=== PATIENT | female | born 1940 | race American Indian/Alaskan Native ===

== ENCOUNTER 2016-10-19 00:15 | Emergency (ER) | payer SELFPAY ==
[2016-10-19 03:09] LABS: Eosinophils % (Auto) 0.3 % (0.0-4.3); Hematocrit 39.1 % (30.3-42.9); Hemoglobin 13.5 gm/dl (10.1-14.3); Mean Corpuscular HGB Conc 34 % (30-34); Mean Corpuscular Hemoglobin 28 pg (28-32); Mean Corpuscular Volume 82 fl (79-97); Platelet Count 295 K/mm3 (140-440); Red Blood Count 4.75 M/mm3 (3.65-5.03); Red Cell Distribution Width 14.5 % (13.2-15.2); White Blood Count 12.6 K/mm3 (4.5-11.0)
[2016-10-19 03:19] LABS: Alanine Aminotransferase 8 units/L (7-56); Albumin/Globulin Ratio 1.1 %; Alkaline Phosphatase 74 units/L (35-129); Anion Gap 20 mmol/L; BUN/Creatinine Ratio 36.66; Blood Urea Nitrogen 22 mg/dL (7-17); Calcium 9.6 mg/dL (8.4-10.2); Carbon Dioxide 25 mmol/L (22-30); Chloride 95.6 mmol/L (98-107); Glucose 125 mg/dL (65-100); Lipase 27 units/L (13-60); Potassium 4.1 mmol/L (3.6-5.0); Sodium 136 mmol/L (137-145); Total Protein 7.7 g/dL (6.3-8.2)
[2016-10-19 04:48] LABS: Bilirubin,Urine NEG (Negative); Blood,Urine NEG (Negative); Ketones,Urine TR mg/dL (Negative); Leukocyte Esterase,Urine TR (Negative); Mucus,Urine 2+ /HPF; Nitrite,Urine NEG (Negative); Urobilinogen,Urine < 2.0 mg/dL (<2.0)
[2016-10-19] MEDS ORDERED: NACL 0.9% 1000 ML 1,000 ML IV ONE (11:35)
[2016-10-19] MEDS ORDERED: LOPRESSOR PO ONE (11:35)
[2016-10-19] MEDS ORDERED: MORPHINE IV ONE (11:35)
[2016-10-19] MEDS ORDERED: ZOFRAN IV ONE (11:35)
[2016-10-19] MEDS ORDERED: PEPCID IV ONE (11:35)
[2016-10-19] MEDS ORDERED: NACL ONE (11:40)
--- NOTE | 2016-10-19 11:41 | Emergency Department Report ---
ED Abdominal Pain HPI - General Chief Complaint: Abdominal Pain Stated Complaint: STOMACH PAIN/POSS HIGH BP Time Seen by Provider: 10/19/16 11:25 Source: patient Mode of arrival: Ambulatory Limitations: No Limitations - History of Present Illness Initial Comments: 75-year-old female the past medical history of GERD, hypertension, elevated cholesterol , and previous hysterectomy presents to the hospital complaining of abdominal pain 2 days. Pain is in the mid and lower abdomen, crampy, intermittent. No aggravating or alleviating factors reported. Positive associated nausea and vomiting with 2 episodes prior to arrival. Patient denies melena, hematochezia, hematemesis, fever, diarrhea, or dysuria. Patient has been noncompliant with all her medications 1 week including her BP medication, H2 reina, beta reina, and cholesterol medication. Severity scale (0 -10): 10 - Related Data Previous Rx's Medication Instructions Recorded Last Taken Type Clonidine 0.1 mg PO DAILY #30 10/19/16 Unknown Rx Meloxicam 15 mg PO QDAY #30 tablet 10/19/16 Unknown Rx Metoprolol 50 mg PO DAILY #30 10/19/16 Unknown Rx NIFEdipine 60 mg PO DAILY #30 10/19/16 Unknown Rx Omeprazole Magnesium [PriLOSEC Otc] 40 mg PO QDAY #30 day 10/19/16 Unknown Rx Ondansetron [Zofran Odt] 4 mg PO Q8HR PRN #20 tab.rapdis 10/19/16 Unknown Rx Simvastatin 20 mg PO HS #30 10/19/16 Unknown Rx traMADol [Ultram 50 MG tab] 50 mg PO Q6HR PRN #30 tablet 10/19/16 Unknown Rx Allergies Allergy/AdvReac Type Severity Reaction Status Date / Time No Known Allergies Allergy Verified 02/01/16 12:22 ED Review of Systems ROS: Stated complaint: STOMACH PAIN/POSS HIGH BP Other details as noted in HPI Comment: All other systems reviewed and negative Other: Constitutional: No fevers chills or weight loss Eyes: No eye pain visual changes or discharge ENT: No ear pain or throat pain Neck: Denies pain Respiratory: Denies cough wheezing shortness of breath Cardiovascular: Denies chest pain, palpitations, syncope GI: As per HPI : Denies dysuria Musculoskeletal: Denies back pain Skin: Denies rash, lesions, erythema Neurologic: Denies headache, numbness, weakness Psychiatric: Denies suicidal ideation, hallucinations ED Past Medical Hx - Past Medical History Hx Hypertension: Yes Hx GERD: Yes Additional medical history: HIGH CHOLESTROL/ ACID REFLUX - Surgical History Past Surgical History?: Yes Additional Surgical History: Hysterectomy - Social History Smoking Status: Never Smoker Substance Use Type: None - Medications Home Medications: Home Medications Medication Instructions Recorded Confirmed Last Taken Type Clonidine 0.1 mg PO DAILY #30 10/19/16 Unknown Rx Meloxicam 15 mg PO QDAY #30 tablet 10/19/16 Unknown Rx Metoprolol 50 mg PO DAILY #30 10/19/16 Unknown Rx NIFEdipine 60 mg PO DAILY #30 10/19/16 Unknown Rx Omeprazole Magnesium [PriLOSEC Otc] 40 mg PO QDAY #30 day 10/19/16 Unknown Rx Ondansetron [Zofran Odt] 4 mg PO Q8HR PRN #20 tab.rapdis 10/19/16 Unknown Rx Simvastatin 20 mg PO HS #30 10/19/16 Unknown Rx traMADol [Ultram 50 MG tab] 50 mg PO Q6HR PRN #30 tablet 10/19/16 Unknown Rx ED Physical Exam - General Limitations: No Limitations - Other Other exam information: General: No limitations, patient is alert in no acute distress Head exam: Atraumatic, normocephalic Eyes exam: Normal appearance, not icteric sclera ENT: Moist mucous membrane, normal oropharynx Neck exam: Normal inspection, full range of motion Respiratory exam: Clear to auscultation bilateral, no wheezes, rales, crackles Cardiovascular: Tachycardic regular rhythm Abdomen: Soft, nondistended, mild epigastric and right upper quadrant tenderness , with normal bowel sounds, no rebound, or guarding or negative Mcbride sign Extremity: Full range of motion normal inspection no deformity Back: Normal Inspection, full range of motion, no tenderness Neurologic: Alert, oriented x3, cranial nerves intact, no motor or sensory deficit Psychiatric: normal affect, normal mood Skin: Warm, dry, intact ED Course Vital Signs 10/19/16 10/19/16 10/19/16 02:16 11:35 11:46 Temperature 98.8 F Pulse Rate 124 H 98 H Respiratory 16 21 Rate Blood Pressure 151/108 153/93 153/93 Blood Pressure 151/108 [Left] O2 Sat by Pulse 100 98 97 Oximetry 10/19/16 10/19/1617 12:21 12:39 12:46 Temperature Pulse Rate Respiratory 16 16 Rate Blood Pressure 153/93 115/62 Blood Pressure [Left] O2 Sat by Pulse 100 92 89 Oximetry 10/19/16 10/19/16 10/19/16 13:00 13:16 13:24 Temperature Pulse Rate Respiratory 17 15 17 Rate Blood Pressure 98/63 153/93 153/93 Blood Pressure [Left] O2 Sat by Pulse 96 96 96 Oximetry 10/19/16 10/19/16 10/19/16 13:26 13:28 13:30 Temperature Pulse Rate Respiratory 14 16 16 Rate Blood Pressure 153/93 153/93 153/93 Blood Pressure [Left] O2 Sat by Pulse 96 96 96 Oximetry 10/19/16 10/19/16 13:32 13:34 Temperature Pulse Rate 66 Respiratory 18 16 Rate Blood Pressure 153/93 113/68 Blood Pressure [Left] O2 Sat by Pulse 96 98 Oximetry - Reevaluation(s) Reevaluation #1: 10/19/16 11:40 IV Zofran, morphine, and Pepcid ordered. By mouth metoprolol and nifedipine also ordered Reevaluation #2: 10/19/16 13:40 Patient reports that it would ED treatment. Tolerating by mouth intake. proCardia not received. Vital signs improved after metoprolol alone - Consultations Consultation #1: 10/19/16 13:[address] Medrano superintendent institution GI physician. Patient be switched from H2 reina to PPI and outpatient follow-up for endoscopy and further treatment will be encouraged. ED Medical Decision Making - Lab Data Result diagrams: 10/19/16 02:45 10/19/16 02:45 Lab Results 10/19/16 10/19/16 10/19/16 Range/Units 02:45 02:45 04:23 WBC 12.6 H (4.5-11.0) K/mm3 RBC 4.75 (3.65-5.03) M/mm3 Hgb 13.5 (10.1-14.3) gm/dl Hct 39.1 (30.3-42.9) % MCV 82 (79-97) fl MCH 28 (28-32) pg MCHC 34 (30-34) % RDW 14.5 (13.2-15.2) % Plt Count 295 (140-440) K/mm3 Lymph % (Auto) 29.4 (13.4-35.0) % Caroline % (Auto) 7.0 (0.0-7.3) % Eos % (Auto) 0.3 (0.0-4.3) % Baso % (Auto) 1.0 (0.0-1.8) % Lymph # 3.7 (1.2-5.4) K/mm3 Caroline # 0.9 H (0.0-0.8) K/mm3 Eos # 0.0 (0.0-0.4) K/mm3 Baso # 0.1 (0.0-0.1) K/mm3 Seg Neutrophils % 62.3 (40.0-70.0) % Seg Neutrophils # 7.9 H (1.8-7.7) K/mm3 Sodium 136 L (137-145) mmol/L Potassium 4.1 (3.6-5.0) mmol/L Chloride 95.6 L (98-107) mmol/L Carbon Dioxide 25 (22-30) mmol/L Anion Gap 20 mmol/L BUN 22 H (7-17) mg/dL Creatinine 0.6 L (0.7-1.2) mg/dL Estimated GFR > 60 ml/min BUN/Creatinine Ratio 36.66 % Glucose 125 H (65-100) mg/dL Calcium 9.6 (8.4-10.2) mg/dL Total Bilirubin 0.50 (0.1-1.2) mg/dL AST 15 (5-40) units/L ALT 8 (7-56) units/L Alkaline Phosphatase 74 (35-129) units/L Total Protein 7.7 (6.3-8.2) g/dL Albumin 4.0 (3.9-5) g/dL Albumin/Globulin Ratio 1.1 % Lipase 27 (13-60) units/L Urine Color Yellow (Yellow) Urine Turbidity Slightly-cloudy (Clear) Urine pH 5.0 (5.0-7.0) Ur Specific [place] 1.028 (1.003-1.030) Urine Protein 30 mg/dl (Negative) mg/dL Urine Glucose (UA) Neg (Negative) mg/dL Urine Ketones Tr (Negative) mg/dL Urine Blood Neg (Negative) Urine Nitrite Neg (Negative) Urine Bilirubin Neg (Negative) Urine Urobilinogen < 2.0 (<2.0) mg/dL Ur Leukocyte Esterase Tr (Negative) Urine WBC (Auto) 2.0 (0.0-6.0) /HPF Urine RBC (Auto) 15.0 (0.0-6.0) /HPF U Epithel Cells (Auto) 9.0 (0-13.0) /HPF Urine Mucus 2+ /HPF - Radiology Data Radiology results: report reviewed (CT abdomen and pelvis IV contrast: Suspected peptic ulcer disease wall thickening of the antrum of the stomach and wanted him, right adrenal cyst, diverticulosis sigmoid colon) - Medical Decision Making Patient is better ED treatment. Will be discharged on PPI and refill in her meds. Outpatient follow-up with GI will be encouraged. Medication for be filled as per patient's current med list. It appears the patient takes most of these medications once a day even though the majority of her meds are twice a day medications. It does not appear that patient takes the XL version as per her medication list therefore the XL version will not be prescribed. - Differential Diagnosis GERD, gastritis, UTI, perforated viscus, dyspepsia, cholecystitis Critical Care Time: No Critical care attestation.: If time is entered above; I have spent that time in minutes in the direct care of this critically ill patient, excluding procedure time. ED Disposition Clinical Impression: PUD (peptic ulcer disease), Nausea and vomiting, Medication refill, HTN ( hypertension), Noncompliance with medication regimen Disposition: DISCHARGED TO HOME OR SELFCARE Is pt being admited?: No Does the pt Need Aspirin: No Condition: Stable Instructions: Peptic Ulcer (ED), Acute Nausea and Vomiting (ED), Hypertension ( ED) Additional Instructions: Take the medication as prescribed. Follow-up with the GI doctor provided and your primary care doctor. You may benefit from outpatient H. pylori testing and endoscopy. Return if symptoms worsen. Take the copy of your Cat scan Report to Your Physicians for Follow-Up. Prescriptions: Clonidine 0.1 mg PO DAILY #30 Meloxicam 15 mg PO QDAY #30 tablet Metoprolol 50 mg PO DAILY #30 NIFEdipine 60 mg PO DAILY #30 Omeprazole Magnesium [PriLOSEC Otc] 40 mg PO QDAY #30 day Ondansetron [Zofran Odt] 4 mg PO Q8HR PRN #20 tab.rapdis PRN Reason: Nausea And Vomiting Simvastatin 20 mg PO HS #30 traMADol [Ultram 50 MG tab] 50 mg PO Q6HR PRN #30 tablet PRN Reason: Pain Referrals: PRIMARY CARE, [Primary Care Provider] - 3-5 Days WOODROW MEDRANO MD [Staff Physician] - 3-5 Days (GI doctor ) Time of Disposition: 14:41
[2016-10-19] MEDS ORDERED: PROCARDIA XL PO ONE (12:00)
--- NOTE | 2016-10-19 12:32 | Cat Scan Report ---
CT scan of abdomen and pelvis with IV contrast: History: Upper abdominal pain nausea and vomiting. Findings: Normal lung bases. No pleural or pericardial effusion. Normal liver spleen pancreas and gallbladder. There is wall thickening noted of the stomach antrum and duodenum. Most pronounced at the antrum. No distinct mass. Right adrenal cyst measuring 1.9 cm in diameter. Normal kidneys and bladder. No free intraperitoneal fluid or air. No evidence of adenopathy. Normal aorta. Normal appendix. A few scattered diverticula sigmoid. No evidence of diverticulitis. No bowel distention. Impression: Findings suggestive of peptic ulcer disease. Right adrenal cyst. Diverticulosis sigmoid colon.
[2016-10-19] MEDS ORDERED: PROTONIX IV ONE (13:23)
[2016-10-19 13:43] VITALS: BP 113/68
== END 2016-10-19 14:55 | disposition home or self-care (01) ==
LOC: ED 00:15
DX: K27.9 Peptic ulcer, site unspecified, unspecified as acute or chronic, without hemorrhage or perforation (principal); I10 Essential (primary) hypertension; K21.9 Gastro-esophageal reflux disease without esophagitis; E78.00 Pure hypercholesterolemia, unspecified; Z90.710 Acquired absence of both cervix and uterus; Z91.14 Patient's other noncompliance with medication regimen
CPT/HCPCS: 36415; 74177; 80053; 81001; 83690; 85025; 93005; 93010; 96361; 96374; 96375; 99284; C9113; J2270; J2405; J7030; Q9967

== ENCOUNTER 2017-02-01 01:58 | Emergency (ER) | payer SELFPAY | END 2017-02-01 03:00 | disposition left against medical advice (07) | LOC: ED 01:58 | DX: R10.9 Unspecified abdominal pain (principal); Z53.21 Procedure and treatment not carried out due to patient leaving prior to being seen by health care provider ==

== ENCOUNTER 2018-06-01 11:09 | Emergency (ER) | payer MEDICARE, MEDICAID ==
[2018-06-01] MEDS ORDERED: ZOFRAN IV ONE (12:01)
[2018-06-01] MEDS ORDERED: NACL 0.9% 1000 ML 1,000 ML IV ONE (12:01)
--- NOTE | 2018-06-01 12:01 | Emergency Department Report ---
ED Abdominal Pain HPI - General Chief Complaint: Abdominal Pain Stated Complaint: N/V DIZZY Time Seen by Provider: 06/01/18 11:58 Source: patient Mode of arrival: Ambulatory Limitations: No Limitations - History of Present Illness Initial Comments: 77-year-old female presents to ED with abdominal pain, vomiting, diarrhea 2 days. She states pain is crampy, diffuse, nonradiating. Patient unsure of the cause of her symptoms. Denies chest pain, fever. States he did not take anything at home for her symptoms. MD Complaint: abdominal pain -: days(s) (2) Location: diffuse Radiation: none Migration to: no migration Severity: moderate Quality: cramping Consistency: intermittent Improves With: nothing Worsens With: nothing Associated Symptoms: nausea, vomiting, diarrhea. denies: fever, dysuria - Related Data Previous Rx's Medication Instructions Recorded Last Taken Type Clonidine 0.1 mg PO DAILY #30 10/19/16 Unknown Rx Metoprolol 50 mg PO DAILY #30 10/19/16 Unknown Rx NIFEdipine 60 mg PO DAILY #30 10/19/16 Unknown Rx Omeprazole Magnesium [PriLOSEC Otc] 40 mg PO QDAY #30 day 10/19/16 Unknown Rx Ondansetron [Zofran Odt] 4 mg PO Q8HR PRN #20 tab.rapdis 10/19/16 Unknown Rx Simvastatin 20 mg PO HS #30 10/19/16 Unknown Rx traMADol [Ultram 50 MG tab] 50 mg PO Q6HR PRN #30 tablet 10/19/16 Unknown Rx Dicyclomine [Bentyl] 20 mg PO QID PRN #20 tablet 06/01/18 Unknown Rx Nitrofurantoin Monohyd/M-Cryst 100 mg PO BID #10 capsule 06/01/18 Unknown Rx [Macrobid 100 mg Capsule] Ondansetron [Zofran Odt] 4 mg PO Q8HR PRN #20 tab.rapdis 06/01/18 Unknown Rx Allergies Allergy/AdvReac Type Severity Reaction Status Date / Time No Known Allergies Allergy Verified 02/01/16 12:22 ED Review of Systems ROS: Stated complaint: N/V DIZZY Other details as noted in HPI Comment: All other systems reviewed and negative Constitutional: denies: chills, fever Respiratory: denies: cough, shortness of breath Cardiovascular: denies: chest pain Gastrointestinal: abdominal pain, nausea, vomiting, diarrhea Genitourinary: denies: dysuria ED Past Medical Hx - Past Medical History Previous Medical History?: Yes Hx Hypertension: Yes Hx GERD: Yes Additional medical history: HIGH CHOLESTROL/ ACID REFLUX - Surgical History Past Surgical History?: Yes Additional Surgical History: Hysterectomy - Social History Smoking Status: Never Smoker Substance Use Type: None - Medications Home Medications: Home Medications Medication Instructions Recorded Confirmed Last Taken Type Clonidine 0.1 mg PO DAILY #30 10/19/16 Unknown Rx Metoprolol 50 mg PO DAILY #30 10/19/16 Unknown Rx NIFEdipine 60 mg PO DAILY #30 10/19/16 Unknown Rx Omeprazole Magnesium [PriLOSEC Otc] 40 mg PO QDAY #30 day 10/19/16 Unknown Rx Ondansetron [Zofran Odt] 4 mg PO Q8HR PRN #20 tab.rapdis 10/19/16 Unknown Rx Simvastatin 20 mg PO HS #30 10/19/16 Unknown Rx traMADol [Ultram 50 MG tab] 50 mg PO Q6HR PRN #30 tablet 10/19/16 Unknown Rx Dicyclomine [Bentyl] 20 mg PO QID PRN #20 tablet 06/01/18 Unknown Rx Nitrofurantoin Monohyd/M-Cryst 100 mg PO BID #10 capsule 06/01/18 Unknown Rx [Macrobid 100 mg Capsule] Ondansetron [Zofran Odt] 4 mg PO Q8HR PRN #20 tab.rapdis 06/01/18 Unknown Rx ED Physical Exam - General Limitations: No Limitations General appearance: alert, in no apparent distress - Head Head exam: Present: atraumatic, normocephalic - Eye Eye exam: Present: normal appearance - ENT ENT exam: Present: mucous membranes moist - Neck Neck exam: Present: normal inspection - Respiratory Respiratory exam: Present: normal lung sounds bilaterally. Absent: respiratory distress - Cardiovascular Cardiovascular Exam: Present: normal rhythm, tachycardia - GI/Abdominal GI/Abdominal exam: Present: soft, tenderness (mild, diffuse). Absent: distended, guarding, rebound - Extremities Exam Extremities exam: Present: normal inspection - Neurological Exam Neurological exam: Present: alert, oriented X3 - Psychiatric Psychiatric exam: Present: normal affect, normal mood - Skin Skin exam: Present: warm, dry, intact, normal color ED Course Vital Signs 06/01/18 06/01/18 06/01/18 11:23 12:10 12:16 Temperature 97.8 F Pulse Rate 122 H Respiratory 18 Rate Blood Pressure 136/94 O2 Sat by Pulse 96 95 95 Oximetry 06/01/18 06/01/18 06/01/18 12:30 12:46 12:56 Temperature 99.0 F Pulse Rate 109 H 110 H Respiratory 22 22 Rate Blood Pressure 132/92 O2 Sat by Pulse 93 95 Oximetry 06/01/18 06/01/18 06/01/18 13:00 13:16 13:30 Temperature Pulse Rate 105 H 98 H 96 H Respiratory 22 20 20 Rate Blood Pressure 131/92 131/92 133/80 O2 Sat by Pulse 91 91 92 Oximetry 06/01/18 06/01/18 06/01/18 13:46 14:28 14:30 Temperature Pulse Rate 97 H 99 H 95 H Respiratory 20 22 19 Rate Blood Pressure 133/80 O2 Sat by Pulse 92 92 93 Oximetry ED Medical Decision Making - Lab Data Result diagrams: 06/01/18 12:19 06/01/18 12:19 - EKG Data -: EKG Interpreted by Tn EKG shows normal: sinus rhythm, axis, intervals, QRS complexes, ST-T waves Rate: tachycardia (rate 118) - EKG Data Interpretation: other (t wave inversion aVL) - Radiology Data Radiology results: report reviewed, image reviewed - Medical Decision Making 77-year-old female with abdominal pain, nausea, vomiting, and diarrhea. Patient afebrile. Minimally elevated WBCs. CT abdomen and pelvis negative for any acute findings. Patient given IV fluids, Zofran, Toradol. Patient feeling much better at this time. No episodes of emesis or loose stools here in the ED. UA does show small leukocyte esterase with wbc's present. Large amount of epithelial cells also present, so may not be optimal sample, however 1+ bacteria present so will treat UTI. Return precautions given. Patient advised to follow with PCP. - Differential Diagnosis gastroenteritis, bowel obstruction, diverticulitis Critical care attestation.: If time is entered above; I have spent that time in minutes in the direct care of this critically ill patient, excluding procedure time. ED Disposition Clinical Impression: Gastroenteritis, UTI (urinary tract infection) Disposition: - TO HOME OR SELFCARE Is pt being admited?: No Condition: Stable Instructions: Gastroenteritis (ED) Prescriptions: Dicyclomine [Bentyl] 20 mg PO QID PRN #20 tablet PRN Reason: abdominal pain Nitrofurantoin Monohyd/M-Cryst [Macrobid 100 mg Capsule] 100 mg PO BID #10 capsule Ondansetron [Zofran Odt] 4 mg PO Q8HR PRN #20 tab.rapdis PRN Reason: Vomiting Referrals: PRIMARY CARE, [Primary Care Provider] - 3-5 Days Time of Disposition: 15:08
[2018-06-01 12:44] LABS: Hematocrit 45.9 % (30.3-42.9); Mean Corpuscular HGB Conc 35 % (30-34); Mean Corpuscular Volume 80 fl (79-97); Platelet Count 378 K/mm3 (140-440); Red Blood Count 5.74 M/mm3 (3.65-5.03); Red Cell Distribution Width 14.5 % (13.2-15.2)
[2018-06-01 12:53] LABS: Alanine Aminotransferase 13 units/L (7-56); Albumin 4.5 g/dL (3.9-5); BUN/Creatinine Ratio 20; Blood Urea Nitrogen 20 mg/dL (7-17); Calcium 10.1 mg/dL (8.4-10.2); Hemolysis Index 2
[2018-06-01] MEDS ORDERED: TORADOL IV ONE (13:16)
[2018-06-01 13:39] LABS: Bacteria,Urine 1+ /HPF (Negative); Bilirubin,Urine NEG (Negative); Blood,Urine SM (Negative); Color,Urine Amber (Yellow); Hyaline Casts,Urine 3 /LPF; Mucus,Urine 3+ /HPF
[2018-06-01 14:45] VITALS: BP 133/80
--- NOTE | 2018-06-01 15:00 | Cat Scan Report ---
CT ABDOMEN PELVIS WITH CONTRAST: HISTORY: abdominal pain. COMPARISON: 10/19/16. TECHNIQUE: Helical CT in 1.25mm intervals following IV contrast. Sagittal and coronal reconstructions. FINDINGS: Lung bases: Normal. Liver: Mild fatty change throughout the liver is noted. No mass or enlargement. Biliary system: Normal. Pancreas: Normal. Spleen: Normal. Kidneys/ureters/bladder: Normal. Adrenal glands: 2.7 cm right adrenal mass is unchanged since the previous exam. Internal density measures 42 Hounsfield units. 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 Left adrenal gland is normal. Aorta: Normal. Intestines: Thickening of the gastric antrum and duodenum have resolved since the previous exam. No obvious peptic ulcer disease. The small bowel loops and colon are unremarkable. Appendix: Not confidently identified. Pelvic viscera: Hysterectomy is suspected. No adnexal abnormality. Ascites: None. Adenopathy: None. Musculoskeletal: Moderate thoracolumbar spondylosis. IMPRESSION: No acute process is identified in the abdomen or pelvis. Gastritis/peptic ulcer disease findings in on the previous exam have significantly improved or resolved. Mild fatty change in the liver. 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 Assumed hysterectomy and appendectomy. Thoracolumbar spondylosis.
== END 2018-06-01 15:42 | disposition home or self-care (01) ==
LOC: ED 11:09
DX: K52.9 Noninfective gastroenteritis and colitis, unspecified (principal); N39.0 Urinary tract infection, site not specified; I10 Essential (primary) hypertension; K21.9 Gastro-esophageal reflux disease without esophagitis; E78.00 Pure hypercholesterolemia, unspecified; Z90.710 Acquired absence of both cervix and uterus; Z79.899 Other long term (current) drug therapy
CPT/HCPCS: 36415; 74177; 80053; 81001; 82962; 84484; 85027; 93005; 93010; 96361; 96374; 96375; 99284; J1885; J2405; J7030; Q9967

== ENCOUNTER 2018-06-03 16:16 | Emergency (ER) | payer MEDICARE ==
[2018-06-03 17:04] LABS: Hematocrit 43.4 % (30.3-42.9); Mean Corpuscular HGB Conc 35 % (30-34); Mean Corpuscular Volume 82 fl (79-97); Platelet Count 344 K/mm3 (140-440); Red Blood Count 5.32 M/mm3 (3.65-5.03); Red Cell Distribution Width 14.7 % (13.2-15.2)
[2018-06-03] MEDS ORDERED: LIDOCAINE VISCOUS 2% PO ONE (17:38)
[2018-06-03] MEDS ORDERED: PEPCID PO ONE (17:38)
[2018-06-03] MEDS ORDERED: BENTYL PO ONE (17:38)
[2018-06-03] MEDS ORDERED: ALUM-MAG HYDROX-SIMETH 200-200-20MG/5ML PO ONE (17:38)
[2018-06-03] MEDS ORDERED: ZOFRAN ODT PO ONE (17:39)
[2018-06-03] MEDS ORDERED: CATAPRES PO ONE (17:40)
--- NOTE | 2018-06-03 17:46 | Emergency Department Report ---
Chief Complaint: Abdominal Pain Stated Complaint: EXTREME PAIN/STOMACH Time Seen by Provider: 06/03/18 17:41 - HPI History of Present Illness: pmh htn hpld gerd has appnt with Dr Ramirez in AM cc abd pain- upper r/l quadrants nausea no vomiting normal bm Thursday did not take her bp meds this am because of nausea home meds bp meds, chol meds and stomach meds- she can not tell me name psh- hysterectomy tachycardic and hypertensive on admit plan labs ekg chest xray ua gi cocktail clonidine for bp reasses pain and bp - Exam Vital Signs: Vital Signs 06/03/18 16:34 Temperature 98 F Pulse Rate 120 H Respiratory 16 Rate Blood Pressure 178/102 O2 Sat by Pulse 97 Oximetry MSE screening note: Focused history and physical exam performed. Due to findings the following was ordered: ED Medical Decision Making - Lab Data Result diagrams: 06/03/18 16:49 ED Disposition for MSE Condition: Stable Instructions: Abdominal Pain (ED) Referrals: CE DOUGLAS DO [Primary Care Provider] - 3-5 Days
--- NOTE | 2018-06-03 17:49 | Emergency Department Report ---
ED Abdominal Pain HPI - General Chief Complaint: Abdominal Pain Stated Complaint: EXTREME PAIN/STOMACH Time Seen by Provider: 06/03/18 17:41 Source: patient, family Mode of arrival: Ambulatory Limitations: No Limitations - History of Present Illness Initial Comments: This is a 77-year-old female here report that she is having abdominal pain and epigastric area that started today. She is that she has a history of acid reflux and sees Dr. Benavidez. She states that she had previous EGD because she was having the same pain and it showed that she had acid reflux. She says she was placed on medication for acid reflux. Patient reports pain is burning in and 02/24. She reports some nausea. Should a bowel movement yesterday. Denies any fever or chills. Denies any headache, dizziness. She was here in the and was treated for urinary tract infection with Macrobid and given Zofran. Blood pressure is 178/102 and she takes metoprolol, clonidine and hydralazine. Patient took her hydralazine and she was given clonidine 0.1 mg in emergency room. Her primary care doctor is Dr. CONWAY. Pain is constant and no alleviating or exacerbating factors. No medication taken at home. Denies any urinary burning, frequency or urgency. Denies any chest pain or shortness of breath. Denies any back pain. Patient has a history of hypertension and GERD and she is on medication and she did not take her hypertensive medication today. She has had a history of high cholesterol .denies any putting stool or any vomiting of blood.. Patient says she is scheduled to see Dr. Varela tomorrow for EGD. Complaint: abdominal pain (epigastric) -: Last night Location: epigastric Radiation: none Migration to: no migration Severity: severe Severity scale (0 -10): 10 Quality: fullness, burning Consistency: constant Improves With: nothing Worsens With: nothing Context: other (history of acid reflux) Associated Symptoms: nausea. denies: vomiting, diarrhea, fever, chills, constipation, dysuria, hematemesis, hematochezia, melena, anorexia, syncope Treatments Prior to Arrival: other (none) - Related Data LMP (females 10-50): other (possible) Previous Rx's Medication Instructions Recorded Last Taken Type Clonidine 0.1 mg PO DAILY #30 10/19/16 Unknown Rx Metoprolol 50 mg PO DAILY #30 10/19/16 Unknown Rx NIFEdipine 60 mg PO DAILY #30 10/19/16 Unknown Rx Omeprazole Magnesium [PriLOSEC Otc] 40 mg PO QDAY #30 day 10/19/16 Unknown Rx Simvastatin 20 mg PO HS #30 10/19/16 Unknown Rx Acetaminophen/Codeine [Tylenol 1 tab PO Q6H PRN #14 tab 06/03/18 Unknown Rx /Codeine # 3 tab] Dicyclomine [Bentyl] 40 mg PO Q8H 3 Days #9 tablet 06/03/18 Unknown Rx Omeprazole 40 mg PO QDAY 30 Days #30 06/03/18 Unknown Rx capsule. Ondansetron [Zofran ODT TAB] 8 mg PO Q8HR PRN #16 tab.rapdis 06/03/18 Unknown Rx Allergies Allergy/AdvReac Type Severity Reaction Status Date / Time No Known Allergies Allergy Verified 02/01/16 12:22 ED Review of Systems ROS: Stated complaint: EXTREME PAIN/STOMACH Other details as noted in HPI Constitutional: denies: chills, fever ENT: denies: ear pain, throat pain, congestion Respiratory: denies: cough, shortness of breath, SOB with exertion, SOB at rest, stridor, wheezing Cardiovascular: denies: chest pain, palpitations, dyspnea on exertion, edema, syncope, paroxysmal nocturnal dyspnea Gastrointestinal: abdominal pain, nausea. denies: vomiting, diarrhea, constipation, hematemesis, melena, hematochezia Genitourinary: denies: urgency, dysuria, frequency, hematuria Musculoskeletal: denies: back pain, joint swelling, arthralgia, myalgia Skin: denies: rash Neurological: denies: headache, weakness, numbness, paresthesias, confusion, abnormal gait, vertigo ED Past Medical Hx - Past Medical History Previous Medical History?: Yes Hx Hypertension: Yes Hx GERD: Yes Additional medical history: HIGH CHOLESTROL/ ACID REFLUX - Surgical History Past Surgical History?: Yes Additional Surgical History: Hysterectomy - Family History Family history: hypertension - Social History Smoking Status: Never Smoker Substance Use Type: None - Medications Home Medications: Home Medications Medication Instructions Recorded Confirmed Last Taken Type Clonidine 0.1 mg PO DAILY #30 10/19/16 Unknown Rx Metoprolol 50 mg PO DAILY #30 10/19/16 Unknown Rx NIFEdipine 60 mg PO DAILY #30 10/19/16 Unknown Rx Omeprazole Magnesium [PriLOSEC Otc] 40 mg PO QDAY #30 day 10/19/16 Unknown Rx Simvastatin 20 mg PO HS #30 10/19/16 Unknown Rx Acetaminophen/Codeine [Tylenol 1 tab PO Q6H PRN #14 tab 06/03/18 Unknown Rx /Codeine # 3 tab] Dicyclomine [Bentyl] 40 mg PO Q8H 3 Days #9 tablet 06/03/18 Unknown Rx Omeprazole 40 mg PO QDAY 30 Days #30 06/03/18 Unknown Rx capsule. Ondansetron [Zofran ODT TAB] 8 mg PO Q8HR PRN #16 tab.rapdis 06/03/18 Unknown Rx ED Physical Exam - General Limitations: No Limitations General appearance: alert, in no apparent distress - Head Head exam: Present: atraumatic, normocephalic, normal inspection, other (normal exam) - Eye Eye exam: Present: normal appearance, PERRL, EOMI Pupils: Present: normal accommodation - ENT ENT exam: Present: normal exam, normal orophraynx, mucous membranes moist, TM's normal bilaterally, normal external ear exam - Neck Neck exam: Present: normal inspection, full ROM, other (no C-spine tenderness). Absent: tenderness, lymphadenopathy - Respiratory Respiratory exam: Present: normal lung sounds bilaterally. Absent: respiratory distress, wheezes, rales, rhonchi, stridor, chest wall tenderness, accessory muscle use, decreased breath sounds, prolonged expiratory - Cardiovascular Cardiovascular Exam: Present: normal rhythm, tachycardia, normal heart sounds. Absent: systolic murmur, diastolic murmur - GI/Abdominal GI/Abdominal exam: Present: soft, tenderness (mode tenderness to epigastric area), normal bowel sounds. Absent: distended, rebound, rigid, organomegaly, mass, bruit, pulsatile mass, hernia - Extremities Exam Extremities exam: Present: normal inspection, full ROM, normal capillary refill, other (No cce. + 2 pulses in all extremities, no neurovascular compromise). Absent: tenderness, pedal edema, joint swelling, calf tenderness - Back Exam Back exam: Present: normal inspection, full ROM, other (ambulates without any difficulties). Absent: tenderness, CVA tenderness (R), CVA tenderness (L), muscle spasm, paraspinal tenderness, vertebral tenderness, rash noted - Neurological Exam Neurological exam: Present: alert, oriented X3, normal gait - Psychiatric Psychiatric exam: Present: normal affect, normal mood - Skin Skin exam: Present: warm, dry, intact, normal color. Absent: rash ED Course Vital Signs 06/03/18 06/03/18 06/03/18 16:34 17:51 17:59 Temperature 98 F Pulse Rate 120 H 102 H 102 H Respiratory 16 Rate Blood Pressure 178/102 142/96 Blood Pressure 142/96 [Left] O2 Sat by Pulse 97 Oximetry 06/03/18 06/03/18 18:00 20:50 Temperature Pulse Rate 78 Respiratory 15 16 Rate Blood Pressure Blood Pressure 102/72 [Left] O2 Sat by Pulse 98 Oximetry - Reevaluation(s) Reevaluation #1: 06/03/18 18:18 She received Maalox 15 mL, Zofran 4 mg ODT, lidocaine 15 mL, Pepcid 40 mg and emergency room to treat epigastric pain with minimal relief. Reevaluation #2: 06/03/18 21:19 She received Zofran 4 mg IV, 1 L normal saline, morphine 4 mg IV and her pain is better relief. Abnormal CT scan and will discuss with Dr. Cheung. Patient was also given clonidine 0.1 mg in ED and a she took her on metoprolol and her blood pressure is normal present heart rate is stable. CBC with hemoconcentration, urinalysis was trace ketone otherwise stable and CMP with minimal decrease in potassium and she will be replaced. Reevaluation #3: 06/03/18 21:30 [facility] and awaiting callback. Patient to receive potassium 40 mEq. abdomen is nontender the palpated present 06/03/18 21:35 Reevaluation #4: 06/03/18 21:[address] Servin from [facility]-regarding patient's CT scan findings and he is okay with patient being discharged to follow-up with Dr. Varela tomorrow for EGD that is already scheduled. ED Medical Decision Making - Lab Data Result diagrams: 06/03/18 16:49 06/03/18 16:49 Lab Results 06/03/18 06/03/18 06/03/18 Range/Units 16:49 16:49 18:09 WBC 10.6 (4.5-11.0) K/mm3 RBC 5.32 H (3.65-5.03) M/mm3 Hgb 15.0 H (10.1-14.3) gm/dl Hct 43.4 H (30.3-42.9) % MCV 82 (79-97) fl MCH 28 (28-32) pg MCHC 35 H (30-34) % RDW 14.7 (13.2-15.2) % Plt Count 344 (140-440) K/mm3 Sodium 135 L (137-145) mmol/L Potassium 3.4 L (3.6-5.0) mmol/L Chloride 94.2 L (98-107) mmol/L Carbon Dioxide 25 (22-30) mmol/L Anion Gap 19 mmol/L BUN 31 H (7-17) mg/dL Creatinine 0.8 (0.7-1.2) mg/dL Estimated GFR > 60 ml/min BUN/Creatinine Ratio 39 % Glucose 155 H (65-100) mg/dL Calcium 9.2 (8.4-10.2) mg/dL Total Bilirubin 0.70 (0.1-1.2) mg/dL AST 24 (5-40) units/L ALT 13 (7-56) units/L Alkaline Phosphatase 72 (35-129) units/L Troponin T 0.017 (0.00-0.029) ng/mL Total Protein 7.7 (6.3-8.2) g/dL Albumin 4.2 (3.9-5) g/dL Albumin/Globulin Ratio 1.2 % Urine Color [place] (Yellow) Urine Turbidity Slightly-cloudy (Clear) Urine pH 5.0 (5.0-7.0) Ur Specific [place] 1.029 (1.003-1.030) Urine Protein 30 mg/dl (Negative) mg/dL Urine Glucose (UA) 50 (Negative) mg/dL Urine Ketones Tr (Negative) mg/dL Urine Blood Mod (Negative) Urine Nitrite Neg (Negative) Urine Bilirubin Neg (Negative) Urine Urobilinogen 4.0 (<2.0) mg/dL Ur Leukocyte Esterase Neg (Negative) Urine WBC (Auto) 5.0 (0.0-6.0) /HPF Urine RBC (Auto) 10.0 (0.0-6.0) /HPF U Epithel Cells (Auto) 20.0 H (0-13.0) /HPF Urine Mucus 2+ /HPF - Radiology Data Radiology results: report reviewed Chest x-ray [address] scan of the abdomen and pelvis with IV contrast dictated by radiologist and report reviewed by myself. Please see details below. Findings [facility] [address] [place] [address] Cat Scan Report Signed Patient: SHAQ RILEY MR#: [id number] : 1940 Acct:[id number] Age/Sex: 77 / F ADM Date: 06/03/18 Loc: ED Attending Dr: Ordering Physician: VIVIEN METCALF Date of Service: 06/03/18 Procedure(s): CT abdomen pelvis w con Accession Number(s): [id number] cc: VIVIEN METCALF FINAL REPORT EXAM: CT ABDOMEN PELVIS W CON HISTORY: abominal pain with nausea TECHNIQUE: Following administration of IV contrast axial helical imaging was performed through the abdomen and pelvis with sagittal and coronal reformatted images obtained. Delayed axial helical imaging was also performed through the abdomen and pelvis. FINDINGS: The lung bases are without infiltrate, pneumothorax or pleural fluid collection. There is evidence of fatty infiltration/steatosis of the liver. The spleen, pancreas, kidneys are unremarkable in appearance. The gallbladder is moderately distended and unremarkable in appearance. There is an approximately 2.4 centimeter by 2.6 centimeter by 2.9 centimeter heterogeneous mass in the right adrenal gland. The bowel is normal caliber. There appears to be mild stranding of the fat in the region of the duodenum and head of the pancreas which may represent changes of duodenitis or pancreatitis. There are mildly prominent lymph nodes in the region of the proximal duodenum and head of the pancreas and in the lesser sac. The largest appears to measure approximately 1.5 centimeters in the maximum dimension. There are colonic diverticula without radiographic evidence of diverticulitis. There is no evidence of pneumoperitoneum or free fluid. The abdominal aorta is normal caliber. The urinary bladder is mildly distended and unremarkable in appearance. The uterus is absent. The bony structures are notable for spondylitic change of the lower thoracic spine and lumbar spine with the appearance of multiple level canal stenosis and degenerative change of the SI joints ezekiel aterally. IMPRESSION: 1. Stranding of the fat in the region of the duodenum and head of the pancreas with prominent lymph nodes this region and prominent lymph nodes in the lesser sac. Duodenitis, pancreatitis or possible gastric or duodenal malignancy would need to be considered. 2. Approximately 2.9 centimeter mass right adrenal gland. The above findings were discussed with VIVIEN Calvin at 8:30 p.m. June 03, 2018. 3. Status post hysterectomy. 4. 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 Transcribed By: ED Dictated By: JOSELUIS ROGERS MD Electronically Authenticated By: JOSELUIS ROGERS MD Signed Date/Time: 06/03/182034 DD/ 36 TD/TT: 06/03/182036 Findings [facility] [address] [place] [address] XRay Report Signed Patient: SHAQ RILEY MR#: [id number] : 1940 Acct:[id number] Age/Sex: 77 / F ADM Date: 06/03/18 Loc: ED Attending Dr: Ordering Physician: RENETTA GENAO Date of Service: 06/03/18 Procedure(s): XR chest routine 2V Accession Number(s): [id number] cc: RENETTA GENAO Fluoro Time In Minutes: FINAL REPORT EXAM: XR CHEST ROUTINE 2V HISTORY: CHEST PAIN TECHNIQUE: PA and lateral views of the chest Comparison: None FINDINGS: There is elevation/eventration the right hemidiaphragm. There is prominence of the interstitial markings in both lungs with peribronchial thickening, acute versus chronic. There is no evidence of focal infiltrate, pneumothorax or pleural fluid collection. The cardiac silhouette appears to be normal size. The thoracic aorta is moderately tortuous. The bony structures are notable for degenerative change of the shoulder joints and of the thoracic spine. IMPRESSION: 1. Prominence of the interstitial markings with peribronchial thickening, acute versus chronic. In the proper clinical setting bronchiolitis would need to be considered. 2. Moderate tortuosity thoracic aorta. 3. Degenerative change shoulder joints bilaterally and thoracic spine. Transcribed By: ED Dictated By: JOSELUIS ROGERS MD Electronically Authenticated By: JOSELUIS ROGERS MD Signed Date/Time: 06/03/181805 DD/ 08 TD/TT: 06/03/181808 - Medical Decision Making This is a 77-year-old female that here complaining that she is having epigastric abdominal pain that started yesterday and she feels full. She has a history of acid reflux and sees Dr. Varela. Patient was here 2 days ago and was treated for urinary tract infection with Macrobid. Physical exam is normal except she has minimal tenderness to her epigastric area without any abdominal swelling. Patient's CBC shows hemoconcentration and white count is normal, CMP and lipase is stable except she has minimal decrease in her potassium and was replenished potassium 40 mEq by mouth. Patient was given GI cocktail and emergency room which did not help with her pain and she was given 1 L normal saline, Zofran IV and morphine IV 3 and this helped her pain. She is able to tolerate oral liquids. Urinalysis appears stable with small amount of ketones. A CT scan of abdomen and pelvis and chest x-ray. This is dictated by radiologist report reviewed by myself. There is some of the mildly in her CT scan and I spoke with GI Dr. Servin on-call for [facility] and he reports the patient can go home as long as she is stable. Patient agrees to this. I discussed a CT scan, x-ray and lab results with her and her daughter did voice understanding. She is scheduled to have EGD done with Dr. Varela tomorrow and she says she will keep her appointment. Please see laboratory results the laboratory section and CT scan and x-ray results and reports. Patient cut pain is controlled, her blood pressure was elevated because she did not take her medication. She was given 0.1 of clonidine that was ordered by another MARLENA and she took her own metoprolol in the emergency room and her blood pressure stable, heart rate is better and she is afebrile. Patient also had EKG done which was stable and tachycardic at 104. Start home with her daughter in stable condition with prescription for Zofran, Tylenol No. 3 and I will refill her omeprazole as she says she takes this medication but she ran out of it. - Differential Diagnosis PNA, pancreatitis, CA,liver DZ, GDD, ulcer, hernia, gastritis, colitis, UTI Critical care attestation.: If time is entered above; I have spent that time in minutes in the direct care of this critically ill patient, excluding procedure time. ED Disposition Clinical Impression: Nausea, Dehydration, Adrenal mass, right, Elevated blood pressure reading with diagnosis of hypertension Abdominal pain Qualifiers: Abdominal location: epigastric Qualified Code(s): R10.13 - Epigastric pain Gastric inflammation Qualifiers: Gastritis type: unspecified gastritis Chronicity: unspecified Gastritis bleeding: without bleeding Qualified Code(s): K29.70 - Gastritis, unspecified, without bleeding Disposition: TO HOME OR SELFCARE Is pt being admited?: No Does the pt Need Aspirin: No Condition: Stable Instructions: Abdominal Pain (ED), Diet for Ulcers and Gastritis (ED), Gastroesophageal Reflux Disease (ED), Chronic Hypertension (ED), Hypertension (ED), Dehydration (ED) Additional Instructions: These follow-up the primary care physician on 06/07/2017 and keep your appointment with Dr. Varela tomorrow for scheduled EGD at 1 PM. Refill for omeprazole for acid reflux Follow-up with telecommunications project manager regarding adrenal mass.. This is located on your right adrenal gland that is on your right kidney. Take Tylenol 3 for pain the patient is in a job or operate heavy machinery while taking this medication as it causes drowsiness Take Zofran for nausea or vomiting. Take Bentyl for stomach pain. If condition worsens, return to the emergency room He had lab work shows a you were dehydrated, please remember to increase her fluid intake and drink at least 8-8 ounce glasses of water daily. Referrals: GALINA VARELA MD [Staff Physician] - 06/04/18 1:00 pm follow-up with your primary care physician, Dr. CONWAY [Other] - 06/07/18 EFREN LOZANO MD [Staff Physician] - 06/07/18 Forms: Accompanied Note
[2018-06-03 17:53] LABS: Alanine Aminotransferase 13 units/L (7-56); Albumin 4.2 g/dL (3.9-5); BUN/Creatinine Ratio 39; Blood Urea Nitrogen 31 mg/dL (7-17); Calcium 9.2 mg/dL (8.4-10.2); Hemolysis Index 9
--- NOTE | 2018-06-03 18:06 | XRay Report ---
FINAL REPORT EXAM: XR CHEST ROUTINE 2V HISTORY: CHEST PAIN TECHNIQUE: PA and lateral views of the chest Comparison: None FINDINGS: There is elevation/eventration the right hemidiaphragm. There is prominence of the interstitial markings in both lungs with peribronchial thickening, acute v ersus chronic. There is no evidence of focal infiltrate, pneumothorax or pleural fluid collection. The cardiac silhouette appears to be normal size. The thoracic aorta is moderately tortuous. The bony structures are notable for degenerative change of the shoulder joints and of the thoracic sp ine. IMPRESSION: 1. Prominence of the interstitial markings with peribronchial thickening, acute versus chronic. In th e proper clinical setting bronchiolitis would need to be considered. 2. Moderate tortuosity thoracic aorta. 3. Degenerative change shoulder joints bilaterally and thoracic spine.
[2018-06-03] MEDS ORDERED: ZOFRAN IV ONE (18:19)
[2018-06-03] MEDS ORDERED: NACL 0.9% 1000 ML 1,000 ML IV ONE (18:19)
[2018-06-03 18:48] LABS: Bilirubin,Urine NEG (Negative); Blood,Urine MOD (Negative); Color,Urine Amber (Yellow); Mucus,Urine 2+ /HPF
--- NOTE | 2018-06-03 20:35 | Cat Scan Report ---
FINAL REPORT EXAM: CT ABDOMEN PELVIS W CON HISTORY: abominal pain with nausea TECHNIQUE: Following administration of IV contrast axial helical imaging was performed through the a bdomen and pelvis with sagittal and coronal reformatted images obtained. Delayed axial helical imagin g was also performed through the abdomen and pelvis. FINDINGS: The lung bases are without infiltrate, pneumothorax or pleural fluid collection. There is evidence of fatty infiltration/steatosis of the liver. The spleen, pancreas, kidneys are unremarkable in appearance. The gallbladder is moderately distended and unremarkable in appearance. There is an approximately 2.4 centimeter by 2.6 centimeter by 2.9 centimeter heterogeneous mass in th e right adrenal gland. The bowel is normal caliber. There appears to be mild stranding of the fat in the region of the duodenum and head of the pancreas which may represent changes of duodenitis or pancreatitis. There are mildly prominent lymph nodes in the region of the proximal duodenum and head of the pancrea s and in the lesser sac. The largest appears to measure approximately 1.5 centimeters in the maximum dimension. There are colonic diverticula without radiographic evidence of diverticulitis. There is no evidence of pneumoperitoneum or free fluid. The abdominal aorta is normal caliber. The urinary bladder is mildly distended and unremarkable in appearance. The uterus is absent. The bony structures are notable for spondylitic change of the lower thoracic spine and lumbar spine w ith the appearance of multiple level canal stenosis and degenerative change of the SI joints bilatera lly. IMPRESSION: 1. Stranding of the fat in the region of the duodenum and head of the pancreas with prominent lymph n odes this region and prominent lymph nodes in the lesser sac. Duodenitis, pancreatitis or possible ga stric or duodenal malignancy would need to be considered. 2. Approximately 2.9 centimeter mass right adrenal gland. The above findings were discussed with VIVIEN Calvin at 8:30 p.m. June 03, 2018. 3. Status post hysterectomy. 4. 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
[2018-06-03 20:51] VITALS: BP 102/72
[2018-06-03] MEDS ORDERED: K-DUR PO ONE (21:32)
== END 2018-06-03 22:30 | disposition home or self-care (01) ==
LOC: ED 16:16
DX: K29.70 Gastritis, unspecified, without bleeding (principal); E86.0 Dehydration; E27.8 Other specified disorders of adrenal gland; K21.9 Gastro-esophageal reflux disease without esophagitis; I10 Essential (primary) hypertension; E78.00 Pure hypercholesterolemia, unspecified; Z90.710 Acquired absence of both cervix and uterus
CPT/HCPCS: 36415; 71046; 74177; 80053; 81001; 83690; 84484; 85027; 93005; 93010; 96361; 96374; 99285; J2405; J7030; Q9967; Q0162

== ENCOUNTER 2018-06-25 09:59 | Emergency (ER) | payer MEDICARE ==
[2018-06-25] MEDS ORDERED: NACL 0.9% 1000 ML 1,000 ML IV ONE (10:21)
[2018-06-25] MEDS ORDERED: ZOFRAN IV ONE (10:21)
[2018-06-25] MEDS ORDERED: MORPHINE IV ONE (10:39)
[2018-06-25] MEDS ORDERED: PROTONIX IV ONE (10:39)
--- NOTE | 2018-06-25 10:40 | Emergency Department Report ---
ED N/V/D HPI - General Chief complaint: Nausea/Vomiting/Diarrhea Stated complaint: ABD PAIN/VOMITING/SHAKING Time Seen by Provider: 06/25/18 10:20 Source: patient Mode of arrival: Ambulatory Limitations: No Limitations - History of Present Illness Initial comments: 77-year-old female with past medical history of GERD, hypertension, elevated cholesterol, and previous hysterectomy presents also complaining of nausea, vomiting, diarrhea since yesterday. Patient complains of intermittent upper abdominal pain. She was recently seen by her GI doctor Dr. Ramirez one week ago and prescribed clarithromycin, amoxicillin, Carafate, and Reglan. Patient is unsure of her diagnosis and denies receiving a recent endoscopy although she has had one in the past. No reports of fever. - Related Data Home Medications Medication Instructions Recorded Confirmed Last Taken Amoxicillin [Trimox CAP] 1,000 mg PO BID 06/25/18 06/25/18 06/24/18 Clarithromycin [Biaxin] 500 mg PO BID 06/25/18 06/25/18 06/24/18 Metoclopramide [Reglan] 10 mg PO BID 06/25/18 06/25/18 06/24/18 Sucralfate [Carafate] 1 gm PO BID 06/25/18 06/25/18 06/24/18 Allergies Allergy/AdvReac Type Severity Reaction Status Date / Time No Known Allergies Allergy Verified 02/01/16 12:22 ED Review of Systems ROS: Stated complaint: ABD PAIN/VOMITING/SHAKING Other details as noted in HPI Comment: All other systems reviewed and negative ED Past Medical Hx - Past Medical History Hx Hypertension: Yes Hx GERD: Yes Additional medical history: HIGH CHOLESTROL/ ACID REFLUX - Surgical History Past Surgical History?: Yes Additional Surgical History: Hysterectomy - Social History Smoking Status: Never Smoker Substance Use Type: None - Medications Home Medications: Home Medications Medication Instructions Recorded Confirmed Last Taken Type Amoxicillin [Trimox CAP] 1,000 mg PO BID 06/25/18 06/25/18 06/24/18 History Clarithromycin [Biaxin] 500 mg PO BID 06/25/18 06/25/18 06/24/18 History Metoclopramide [Reglan] 10 mg PO BID 06/25/18 06/25/18 06/24/18 History Sucralfate [Carafate] 1 gm PO BID 06/25/18 06/25/1806/24/19 History ED Physical Exam - General Limitations: No Limitations - Other Other exam information: General: No limitations, patient is alert in no acute distress, generalized shaking secondary to feeling cold Head exam: Atraumatic, normocephalic Eyes exam: Normal appearance, pupils equal reactive to light, extraocular mo vements intact ENT: Moist mucous membrane, normal oropharynx Neck exam: Normal inspection, full range of motion, no meningismus nontender Respiratory exam: Clear to auscultation bilateral, no wheezes, rales, crackles Cardiovascular: Tachycardic regular Abdomen: Soft, nondistended, epigastric tenderness, with normal bowel sounds, no rebound, or guarding Extremity: Full range of motion normal inspection no deformity Back: Normal Inspection, full range of motion, no tenderness Neurologic: Alert, oriented x3, cranial nerves intact, no motor or sensory deficit Psychiatric: normal affect, normal mood Skin: Warm, dry, intact ED Course Vital Signs 06/25/18 10:03 Pulse Rate 127 H Respiratory 18 Rate Blood Pressure 107/72 O2 Sat by Pulse 98 Oximetry ED Medical Decision Making - Differential Diagnosis assessment right, medication reaction, cholecystitis, diverticulitis Critical Care Time: No Critical care attestation.: If time is entered above; I have spent that time in minutes in the direct care of this critically ill patient, excluding procedure time. ED Disposition Condition: Stable
[2018-06-25 11:00] LABS: Basophils % (Auto) 0.3 % (0.0-1.8); Eosinophils # (Auto) 0.1 K/mm3 (0.0-0.4); Eosinophils % (Auto) 1.1 % (0.0-4.3); Hematocrit 37.6 % (30.3-42.9); Hemoglobin 13.2 gm/dl (10.1-14.3); Lymphocytes # (Auto) 2.2 K/mm3 (1.2-5.4); Lymphocytes % (Auto) 28.9 % (13.4-35.0); Mean Corpuscular HGB Conc 35 % (30-34); Mean Corpuscular Volume 82 fl (79-97); Monocytes # (Auto) 0.6 K/mm3 (0.0-0.8); Monocytes % (Auto) 8.7 % (0.0-7.3); Platelet Count 254 K/mm3 (140-440); Red Blood Count 4.61 M/mm3 (3.65-5.03); Red Cell Distribution Width 15.2 % (13.2-15.2)
--- NOTE | 2018-06-25 11:13 | Emergency Department Report ---
HPI - General Chief Complaint: Nausea/Vomiting/Diarrhea Time Seen by Provider: 06/25/18 10:20 - HPI HPI: 77-year-old female presents to the emergency department with a 2 day history of lower abdominal pain, nausea, vomiting and diarrhea. The patient also says that she has been shaking since last night. She denies any fever. She denies any dysuria, vaginal bleeding or discharge, constipation. She tried some medication that she was previously prescribed, such as Bentyl, without much relief. The patient was here a few weeks ago for similar symptoms. She had a CT scan of the abdomen and pelvis at that time that showed some lymph adenopathy and inflammation. She was then discharged to follow up outpatient with her process plant operator for an EGD. She has a past medical history as well of hypertension, high cholesterol, acid reflux. No recent travel or sick contacts at home. ED Past Medical Hx - Past Medical History Hx Hypertension: Yes Hx GERD: Yes Additional medical history: HIGH CHOLESTROL/ ACID REFLUX - Surgical History Past Surgical History?: Yes Additional Surgical History: Hysterectomy - Social History Smoking Status: Never Smoker Substance Use Type: None - Medications Home Medications: Home Medications Medication Instructions Recorded Confirmed Last Taken Type Amoxicillin [Trimox CAP] 1,000 mg PO BID 06/25/18 06/25/18 06/24/18 History Clarithromycin [Biaxin] 500 mg PO BID 06/25/18 06/25/18 06/24/18 History Metoclopramide [Reglan] 10 mg PO BID 06/25/18 06/25/18 06/24/18 History Sucralfate [Carafate] 1 gm PO BID 06/25/18 06/25/18 06/24/18 History ED Review of Systems ROS: Stated complaint: ABD PAIN/VOMITING/SHAKING Other details as noted in HPI Comment: All other systems reviewed and negative Constitutional: denies: chills, fever Eyes: denies: eye pain, vision change ENT: denies: ear pain, throat pain Respiratory: denies: cough, shortness of breath Cardiovascular: denies: chest pain, palpitations Gastrointestinal: abdominal pain, nausea, vomiting, diarrhea Genitourinary: denies: urgency, dysuria Musculoskeletal: denies: back pain, arthralgia Skin: denies: rash, lesions Neurological: denies: headache, weakness Physical Exam - Physical Exam Vital Signs: Vital Signs 06/25/18 06/25/18 10:03 11:00 Temperature 99.1 F Pulse Rate 127 H 109 H Respiratory 18 18 Rate Blood Pressure 107/72 O2 Sat by Pulse 98 95 Oximetry Physical Exam: GENERAL: The patient is well-developed well-nourished. HEENT: Normocephalic. Atraumatic. Patient has moist mucous membranes. EYES: Extraocular motions are intact. Pupils are equal and reactive to light bilaterally. NECK: Supple. Trachea is midline. CHEST/LUNGS: Clear to auscultation. There is no respiratory distress noted. HEART/CARDIOVASCULAR: Regular. There is mild tachycardia. There is no obvious murmur. ABDOMEN: Abdomen is soft. Mild lower abdominal tenderness to palpation. No guarding. Patient has normal bowel sounds. There is no abdominal distention. SKIN: Skin is warm and dry. NEURO: The patient is awake, alert, and oriented. The patient is cooperative. The patient has no focal neurologic deficits. The patient has normal speech. The patient has an intermittent involuntary upper body tremor or shaking. Cranial nerves II through XII grossly intact. MUSCULOSKELETAL: There is no tenderness or deformity. There is no limitation range of motion. There is no evidence of acute injury. ED Course Vital Signs 06/25/18 06/25/18 10:03 11:00 Temperature 99.1 F Pulse Rate 127 H 109 H Respiratory 18 18 Rate Blood Pressure 107/72 O2 Sat by Pulse 98 95 Oximetry ED Medical Decision Making - Lab Data Result diagrams: 06/25/18 10:50 06/25/18 10:50 - Radiology Data Radiology results: report reviewed, image reviewed interpreted by me: X-ray of the left shoulder does not show any fracture, dislocation or any acute process. Abdominal x-ray shows nonspecific nonobstructive bowel gas. CT HEAD WITHOUT CONTRAST: HISTORY: Dizziness. TECHNIQUE: Sequential CT images without contrast. FINDINGS: Images obtained show bilateral prominence of the sulci and ventricles. There are no abnormal intra- or extra-axial blood or fluid collections. There are no focal masses or evidence of mass effect. The vaughan white matter differentiation appears within normal limits. Regions of periventricular decreased attenuation are consistent with microangiopathic ischemic disease. The posterior fossa structures including the fourth ventricle, cerebellum, and brainstem appear normal. IMPRESSION: Evidence of atrophy and microangiopathic ischemic disease. No acute intracranial process noted. Transcribed By: TTR Dictated By: CALVIN MCMAHON JR, MD Electronically Authenticated By: CALVIN MCMAHON JR, MD Signed Date/Time: 06/25/18 7055 - Medical Decision Making Patient presents to the emergency department with complaint of lower abdominal pain with nausea and vomiting. She also complains of some chronic left shoulder pain. Lastly the patient says that she started having some involuntary tremors and/or shaking mostly of the upper body and upper extremities. On examination the patient does not have any focal, motor or sensory deficits in her cranial nerves are intact. Labs have been unremarkable including a CBC, CMP, lipase. The patient's urinalysis does show a mild urinary tract infection. She was given some IV fluid, nausea medication, pain medication. She was reevaluated multiple times over multiple hours and her symptoms have improved. Abdominal x- ray shows nonspecific nonobstructive bowel gas. X-ray of the left shoulder does not show any fracture, dislocation or any acute process. CT of the head does not show any bleed, shift, as, ischemia, or any other acute process. Patient's vital signs and stable throughout her ED course. She had some tachycardia upon presentation but that resolved with symptomatic treatment. The patient's nausea and abdominal pain has completely resolved. She still has this intermittent tremor or shaking motion but etiology is unknown. The patient was ambulatory in the emergency department and appears stable. She is to follow-up with primary care and gastroenterology. The patient was given a dose of Macrobid here for her urinary tract infection but later she shows me that she is early on amoxicillin and clarithromycin for her GI issues and her urinary tract infection is very mild. Therefore I did not add a third antibiotic to her regimen. The patient was instructed to follow-up with her primary care physician and process plant operator and to return to the emergency Department with any worsening of her symptoms or any acute distress. - Differential Diagnosis gastroparesis, gastroenteritis, colitis, GERD Critical Care Time: No Critical care attestation.: If time is entered above; I have spent that time in minutes in the direct care of this critically ill patient, excluding procedure time. ED Disposition Clinical Impression: Intermittent tremor Abdominal pain Qualifiers: Abdominal location: unspecified location Qualified Code(s): R10.9 - Unspecified abdominal pain Nausea & vomiting Qualifiers: Vomiting type: unspecified Vomiting Intractability: non-intractable Qualified Code(s): R11.2 - Nausea with vomiting, unspecified UTI (urinary tract infection) Qualifiers: Urinary tract infection type: acute cystitis Hematuria presence: without hematuria Qualified Code(s): N30.00 - Acute cystitis without hematuria Disposition: TO HOME OR SELFCARE Is pt being admited?: No Condition: Stable Instructions: Urinary Tract Infection in Women (ED), Acute Nausea and Vomiting (ED), Abdominal Pain (ED) Additional Instructions: Please follow-up with your primary care physician and process plant operator. I am also giving you a referral for a local orthopedist, Dr. Mcrae, to follow up regarding your left shoulder pain. Return to the emergency department with any return or worsening of your symptoms, or with any acute distress. Referrals: CABRERA CONWAY MD [Staff Physician] - 3-5 Days GALINA VARELA MD [Staff Physician] - 3-5 Days LAYTON MCRAE MD [Staff Physician] - 3-5 Days Time of Disposition: 15:27
[2018-06-25 11:24] LABS: Alanine Aminotransferase 16 units/L (7-56); BUN/Creatinine Ratio 18; Blood Urea Nitrogen 14 mg/dL (7-17); Calcium 9.3 mg/dL (8.4-10.2); Hemolysis Index 6
--- NOTE | 2018-06-25 11:47 | XRay Report ---
ABDOMEN, 2 views: History: Abdominal pain. There is no evidence of free air beneath the diaphragms. The gas pattern within the abdomen is unremarkable. There is no evidence of bowel dilatation, significant air-fluid levels, or pathologic calcifications. Organ shadows are unremarkable. IMPRESSION: Unremarkable abdomen.
[2018-06-25 14:13] LABS: Bilirubin,Urine NEG (Negative); Blood,Urine NEG (Negative); Color,Urine Amber (Yellow); Mucus,Urine 3+ /HPF
[2018-06-25] MEDS ORDERED: MACROBID PO ONE (14:30)
--- NOTE | 2018-06-25 14:47 | XRay Report ---
LEFT SHOULDER, 3 VIEWS History: Left shoulder pain. Findings: Mild osteoarthritic changes are identified. No evidence for fracture, dislocation or ligamentous injury. The soft tissues are unremarkable. IMPRESSION: Mild osteoarthritis.
--- NOTE | 2018-06-25 14:49 | Cat Scan Report ---
CT HEAD WITHOUT CONTRAST: HISTORY: Dizziness. TECHNIQUE: Sequential CT images without contrast. FINDINGS: Images obtained show bilateral prominence of the sulci and ventricles. There are no abnormal intra- or extra-axial blood or fluid collections. There are no focal masses or evidence of mass effect. The vaughan white matter differentiation appears within normal limits. Regions of periventricular decreased attenuation are consistent with microangiopathic ischemic disease. The posterior fossa structures including the fourth ventricle, cerebellum, and brainstem appear normal. IMPRESSION: Evidence of atrophy and microangiopathic ischemic disease. No acute intracranial process noted.
[2018-06-25 15:42] VITALS: BP 104/71
== END 2018-06-25 15:41 | disposition home or self-care (01) ==
LOC: ED 09:59
DX: N30.00 Acute cystitis without hematuria (principal); R25.1 Tremor, unspecified; I10 Essential (primary) hypertension; K21.9 Gastro-esophageal reflux disease without esophagitis; Z90.710 Acquired absence of both cervix and uterus
CPT/HCPCS: 36415; 70450; 73030; 74019; 80053; 81001; 83690; 85025; 96361; 96374; 96375; 99284; C9113; J2270; J2405; J7030